=== PATIENT | female | born 1995 | race Asian ===

== ENCOUNTER 2016-09-27 23:18 | Emergency (ER) | payer OTHER ==
[2016-09-28] MEDS ORDERED: Famotidine IV* 10 MG/ML 2 ML (20 mg) IV ONE (00:25)
[2016-09-28] MEDS ORDERED: NS 0.9% 1000 ML* 1,000 ML IV ONE (00:25)
[2016-09-28] MEDS ORDERED: Ondansetron INJ* 2 MG/ML VIAL IV ONE (00:25)
--- NOTE | 2016-09-28 00:36 | ED ---
Nathanael Arceo Rebecca, scribed for Denilson Hamm MD on 09/28/16 at 0027 . Abdominal Pain/Female - HPI Summary HPI Summary: Pt is a 21 y/o F who presents to ED c/o abd pain. Pain began suddenly 3 days ago and has been constant since onset, worsening 2 hours prior to visit. Pain is discrete to the LUQ without radiation. Pain wavers in intensity, is currently moderate, ranked 7/10 and characterized as cramping. Sx aggravated by palpation, alleviated by nothing. Additionally c/o nausea. Denies V/D, fever, dysuria. Denies eating anything abnormal recently, besides an increase in coffee. Prior similar, less severe, episodes. - History of Current Complaint Chief Complaint: EDAbdPain Stated Complaint: ABD PAIN Time Seen by Provider: 09/28/16 00:17 Hx Obtained From: Patient Onset/Duration: Sudden Onset, Lasting Days - 3 days ago, Still Present Timing: Constant Severity Initially: Moderate Severity Currently: Moderate Pain Intensity: 7 Pain Scale Used: 0-10 Numeric Location: Discrete At: LUQ Radiates: No Character: Cramping Aggravating Factor(s): Other: - Palpation Alleviating Factor(s): Nothing Associated Signs and Symptoms: Positive: Nausea. Negative: Fever, Urinary Symptoms, Vomiting, Diarrhea Allergies/Adverse Reactions: Allergies Allergy/AdvReac Type Severity Reaction Status Date / Time Lactose Intolerance (GI) Allergy Mild GI Upset Verified 09/27/16 23:30 Home Medications: Home Medications NK [No Home Medications Reported] 09/28/16 [History Confirmed 09/28/16] PMH/Surg Hx/FS Hx/Imm Hx Endocrine/Hematology History: Denies: Hx Diabetes Cardiovascular History: Denies: Hx Hypertension GI History: Reports: Other GI Disorders - "digestive issues" Infectious Disease History: No Infectious Disease History: Denies: Traveled Outside the [place] in Last 30 Days - Family History Known Family History: Positive: Hypertension, Diabetes - Social History Occupation: Student Alcohol Use: None Substance Use Type: Reports: None Smoking Status (MU): Never Smoked Tobacco Review of Systems Negative: Fever Positive: Abdominal Pain - LUQ, Nausea. Negative: Vomiting, Diarrhea Negative: dysuria All Other Systems Reviewed And Are Negative: Yes Physical Exam Triage Information Reviewed: Yes Vital Signs On Initial Exam: Initial Vitals Temp Pulse Resp BP Pulse Ox 98.1 F 82 15 120/64 99 09/27/16 23:26 09/27/16 23:26 09/27/16 23:26 09/27/16 23:26 09/27/16 23:26 Vital Signs Reviewed: Yes Appearance: Positive: Well-Appearing, No Pain Distress, Thin Skin: Positive: Warm Head/Face: Positive: Normal Head/Face Inspection Eyes: Positive: N[place]LE Neck: Positive: Supple Respiratory/Lung Sounds: Positive: Clear to Auscultation, Breath Sounds Present Cardiovascular: Positive: RRR Abdomen Description: Positive: Nontender, No Organomegaly, Soft Bowel Sounds: Positive: Present Musculoskeletal: Positive: Strength/ROM Intact Neurological: Positive: Sensory/Motor Intact, Alert, Oriented to Person Place, Time Psychiatric: Positive: Affect/Mood Appropriate - Mona Coma Scale Coma Scale Total: 15 Diagnostics - Vital Signs Vital Signs Temp Pulse Resp BP Pulse Ox 09/27/16 23:26 98.1 F 82 15 120/64 99 - Laboratory Result Diagrams: 09/28/16 00:45 09/28/16 00:45 Lab Statement: Any lab studies that have been ordered have been reviewed, and results considered in the medical decision making process. Re-Evaluation - Re-Evaluation First Eval Change: Improved Abdominal Pain Fem Course/Dx - Course Course Of Treatment: 21 y/o F with a CC of constant LUQ pain for 3 days, worsening 2 hours prior to arrival. Additionally c/o nausea. Denies V/D, dysuria and fever. PMHx "digestive issues." Pt will be D/C to home with a dx of abdominal pain with a followup with her PCP. She is advised to follow a bland diet. - Diagnoses Provider Diagnoses: Abdominal pain Discharge - Discharge Plan Condition: Stable Disposition: HOME Patient Education Materials: Abdominal Pain (ED), Diet for Ulcers and Gastritis (ED) Referrals: [facility] JENNIFER Stephens [Primary Care Provider] - 3 Days (Follow up with your primary care physician in the next 3 days. ) The documentation as recorded by the Nathanael geiger Rebecca accurately reflects the service I personally performed and the decisions made by , Denilson Hamm MD.
[2016-09-28 00:55] LABS: Hematocrit 40 % (35-47); Mean Corpuscular HGB Conc 33 g/dl (31-36); Mean Corpuscular Hemoglobin 30 pg (27-31); Mean Corpuscular Volume 93 fL (80-97); Mean Platelet Volume 8 um3 (7.4-10.4); Red Blood Count 4.27 10^6/ul (4.0-5.4); Red Cell Distribution Width 13 % (10.5-15); White Blood Count 7.6 10^3/ul (3.5-10.8)
[2016-09-28 01:06] LABS: ALT 20 U/L (7-52); AST 24 U/L (13-39); Albumin 4.6 g/dL (3.2-5.2); Alkaline Phosphatase 25 U/L (34-104); Anion Gap 8 mmol/L (2-11); BUN/Creatinine Ratio 20.6 (8-20); Blood Urea Nitrogen 20 mg/dL (6-24); CO2 Carbon Dioxide 29 mmol/L (22-32); Calcium 9.7 mg/dL (8.6-10.3); Chloride 101 mmol/L (101-111); EGFR African American 93.2 (>60); EGFR Non-African American 72.5 (>60); Globulin 3.4 g/dL (2-4); Glucose 90 mg/dL (70-100); Lipase 21 U/L (11.0-82.0); Potassium 3.6 mmol/L (3.5-5.0); Sodium 138 mmol/L (133-145)
[2016-09-28 02:13] VITALS: BP 104/58
== END 2016-09-28 02:12 | disposition home or self-care (01) ==
LOC: ED 23:18
DX: R10.12 Left upper quadrant pain (principal); R11.0 Nausea
CPT/HCPCS: 36415; 80053; 83690; 84702; 85025; 86140; 96374; 96375; 99283; J2405